=== PATIENT | female | born 1980 | race Caucasian/White ===

== ENCOUNTER 2020-01-06 17:50 | Observation (INO) ==
[2020-01-06] MEDS ORDERED: Naloxone 0.4 MG/ML INJ IVP PRN (19:38)
[2020-01-06] MEDS: Acetaminophen 325 MG TABLET PO PRN (21:14)
[2020-01-06] MEDS ORDERED: 0.9 % Sodium Chloride 1,000 ML IV ONE (22:43)
[2020-01-06] MEDS: Ketorolac 15 MG/ML VIAL IVP PRN (22:59)
[2020-01-07] MEDS: MetroNIDAZOLE 500 MG/100 ML 500 MG/100 ML BAG IVPB SCH ×3 (00:16→15:42)
[2020-01-07] MEDS: Cefepime HCl 2,000 MG in Water for inj. (sterile) 20 ML IVP SCH ×3 (00:16→15:41)
[2020-01-07] MEDS ORDERED: 0.9 % Sodium Chloride 1,000 ML IVC ONE (00:32)
[2020-01-07] MEDS: Ketorolac 15 MG/ML VIAL IVP PRN (06:27)
[2020-01-07] MEDS: *HR* Heparin 5,000 UNIT/ML VIAL SQ SCH ×2 (06:28→17:16)
[2020-01-07] MEDS: Acetaminophen 325 MG TABLET PO PRN ×3 (08:29→21:16)
[2020-01-07 08:44] LABS: Hematocrit 33.1 % (35.3-44.9); Hemoglobin 10.2 g/dL (11.5-15.4); Mean Corpuscular HGB Conc 30.8 g/dL (31.6-35.5); Mean Corpuscular Hemoglobin 27.7 pg (28.0-33.3); Mean Corpuscular Volume 89.9 fL (83.0-100.0); Mean Platelet Volume 9.6 fL (9.4-12.4); Platelet Count 166 K/mcL (140-400); Red Blood Count 3.68 M/mcL (3.82-4.97); Red Cell Distribution Width 15.8 % (11.5-14.5); White Blood Count 16.4 K/mcL (4.3-11.1)
[2020-01-07 09:01] LABS: BUN/Creatinine Ratio 16 (6-26); Blood Urea Nitrogen 15 mg/dL (6-20); Calcium 7.3 mg/dL (8.6-10.3); Carbon Dioxide 22 mEq/L (23-29); Chloride 107 mEq/L (98-107); Glucose 103 mg/dL (70-105); Magnesium 1.5 mg/dL (1.6-2.6); Osmolality,Calculated 285 (280-300); Phosphorous 1.5 mg/dL (2.7-4.5); Potassium 3.2 mEq/L (3.5-5.1); Sodium 137 mEq/L (136-145); eGFR For African Americans > 60 (> 60); eGFR For Non-African Americans > 60 (> 60)
[2020-01-07 09:02] LABS: Troponin I < 0.03 ng/mL (< 0.04)
[2020-01-07 11:42] LABS: C-Reactive Protein 272 mg/L (Less than 10)
[2020-01-07 12:07] LABS: Adenovirus Not Detected (Not Detect); Coronavirus 229E Not Detected (Not Detect); Coronavirus HKU1 Not Detected (Not Detect); Coronavirus NL63 Not Detected (Not Detect); Coronavirus OC43 Not Detected (Not Detect)
[2020-01-07 12:08] LABS: Bordetella Pertussis Not Detected (Not Detect); Chlamydophila pneumoniae Not Detected (Not Detect); Human Metapneumovirus Not Detected (Not Detect); Human Rhinovirus/Enterovirus Not Detected (Not Detect); Influenza A Subtype 2009 H1 Not Detected (Not Detect); Influenza B Not Detected (Not Detect); Mycoplasma pneumoniae Not Detected (Not Detect); Parainfluenza Virus 1 Not Detected (Not Detect); Parainfluenza Virus 2 Not Detected (Not Detect); Parainfluenza Virus 3 Not Detected (Not Detect); Parainfluenza Virus 4 Not Detected (Not Detect); Respiratory Syncytial Virus Not Detected (Not Detect); SARS-CoV-2 DETECTED (Not Detect)
[2020-01-07] MEDS ORDERED: Ipratropium/Albuterol Neb 3 ML IH PRN (14:12)
[2020-01-07 17:24] LABS: Adenovirus F 40/41 PCR Not detected (Not detect); Astrovirus PCR Not detected (Not detect); C.difficile Toxin A/B Gene PCR Not detected (Not detect); Campylobacter by PCR Not detected (Not detect); Cryptosporidium by PCR Not detected (Not detect); Cyclospora cayetanensis PCR Not detected (Not detect); E. coli O157 by PCR Not detected (Not detect); Entamoeba histolytica PCR Not detected (Not detect); Enteroaggregative E.coli(EAEC) Not detected (Not detect); Enteropathogenic E.coli(EPEC) Not detected (Not detect); Enterotoxigenic E.coli (ETEC) Not detected (Not detect); Giardia lamblia PCR Not detected (Not detect); Norovirus GI/GII PCR Not detected (Not detect); Plesiomonas shigelloides PCR Not detected (Not detect); Rotavirus A PCR Not detected (Not detect); Salmonella PCR Not detected (Not detect); Sapovirus PCR Not detected (Not detect); Shig/EnteroinvasiveE coli EIEC Not detected (Not detect); Shigalike tox-prod E coli STEC Not detected (Not detect); Vibrio PCR Not detected (Not detect); Vibrio cholerae PCR Not detected (Not detect); Yersinia enterocolitica PCR Not detected (Not detect)
[2020-01-07] MEDS ORDERED: Morphine Sulfate 2 MG/ML SYRINGE IVP ONE (18:28)
[2020-01-07] MEDS ORDERED: (Etanercept [Enbrel] 50 MG) SQ SCH (18:30)
[2020-01-07] MEDS: Lactobacillus 1 EACH CAP.SPRINK PO SCH (20:27)
[2020-01-07] MEDS: tiZANidine 4 MG TABLET PO SCH (20:28)
[2020-01-07] MEDS: Pregabalin 75 MG CAPSULE PO SCH (20:28)
[2020-01-08] MEDS: Cefepime HCl 2,000 MG in Water for inj. (sterile) 20 ML IVP SCH ×4 (00:35→23:03)
[2020-01-08] MEDS: MetroNIDAZOLE 500 MG/100 ML 500 MG/100 ML BAG IVPB SCH ×2 (00:36→08:08)
[2020-01-08] MEDS: *HR* OxyCODONE Immed Rel 5 MG TABLET PO PRN ×2 (03:39→23:04)
[2020-01-08 04:50] LABS: INR 1.3; Prothrombin Time 14.8 Seconds (9.4-12.1)
[2020-01-08 04:53] LABS: Activated Partial Thrombo Time 33.4 Seconds (26.0-36.0)
[2020-01-08 04:54] LABS: Hematocrit 38.3 % (35.3-44.9); Hemoglobin 11.7 g/dL (11.5-15.4); Mean Corpuscular HGB Conc 30.5 g/dL (31.6-35.5); Mean Corpuscular Hemoglobin 27.7 pg (28.0-33.3); Mean Corpuscular Volume 90.8 fL (83.0-100.0); Mean Platelet Volume 9.9 fL (9.4-12.4); Platelet Count 218 K/mcL (140-400); Red Blood Count 4.22 M/mcL (3.82-4.97); White Blood Count 15.6 K/mcL (4.3-11.1)
[2020-01-08 05:10] LABS: BUN/Creatinine Ratio 14 (6-26); Blood Urea Nitrogen 14 mg/dL (6-20); Calcium 8.7 mg/dL (8.6-10.3); Carbon Dioxide 21 mEq/L (23-29); Chloride 105 mEq/L (98-107); Glucose 85 mg/dL (70-105); Magnesium 2.2 mg/dL (1.6-2.6); Osmolality,Calculated 278 (280-300); Phosphorous 2.4 mg/dL (2.7-4.5); Potassium 3.6 mEq/L (3.5-5.1); Sodium 134 mEq/L (136-145); eGFR For African Americans > 60 (> 60); eGFR For Non-African Americans > 60 (> 60)
[2020-01-08 05:13] LABS: Iron < 10 mcg/dL (50-170); Transferrin 240 mg/dL (203-362)
[2020-01-08 05:17] LABS: Lactate Dehydrogenase 211 Units/L (140-271)
[2020-01-08] MEDS: *HR* Heparin 5,000 UNIT/ML VIAL SQ SCH ×2 (05:24→19:07)
[2020-01-08 05:28] LABS: Ferritin 153 ng/mL (10-120)
[2020-01-08 05:34] LABS: Folate 9.7 ng/mL (3.0-16.0)
[2020-01-08 06:40] LABS: Troponin I < 0.03 ng/mL (< 0.04)
[2020-01-08] MEDS: Aspirin 81 MG TAB.CHEW PO SCH (08:03)
[2020-01-08] MEDS: Venlafaxine XR (24 HR) 150 MG CAP.ER.24H PO SCH (08:04)
[2020-01-08] MEDS: Lactobacillus 1 EACH CAP.SPRINK PO SCH ×2 (08:08→20:07)
[2020-01-08] MEDS: Pregabalin 75 MG CAPSULE PO SCH (08:09)
[2020-01-08] MEDS ORDERED: Torsemide 20 MG TABLET PO SCH (09:00)
[2020-01-08] MEDS ORDERED: Cyanocobalamin (B-12) 1,000 MCG TABLET PO SCH (09:00)
[2020-01-08] MEDS ORDERED: hydroCHLOROthiazide 25 MG TABLET PO SCH (09:00)
[2020-01-08] MEDS: tiZANidine 4 MG TABLET PO SCH ×2 (09:34→20:07)
[2020-01-08] MEDS: Multivit/Ca/Min/Fe/FA 1 TAB TABLET PO SCH (09:34)
[2020-01-08] MEDS ORDERED: Dextrose Gel 15 GM/37.5 ML TUBE PO PRN ×2 (10:49)
[2020-01-08] MEDS ORDERED: *HR* Dextrose 50 % in Water (Vial) 50 ML VIAL IVP PRN (10:49)
[2020-01-08] MEDS ORDERED: D5% in Water 1,000 ML IVC PRN (10:49)
[2020-01-08] MEDS: Insulin LISPRO 300 UNITS/3 ML VIAL SQ SCH ×2 (11:33→16:01)
[2020-01-08] MEDS: Metoprolol XL (24 HR) Succ 25 MG TAB.ER.24H PO SCH (11:53)
[2020-01-08] MEDS: Acetaminophen 325 MG TABLET PO PRN (15:54)
[2020-01-09] MEDS: *HR* Heparin 5,000 UNIT/ML VIAL SQ SCH (06:04)
[2020-01-09 07:41] VITALS: BP 107/62
[2020-01-09] MEDS: Metoprolol XL (24 HR) Succ 25 MG TAB.ER.24H PO SCH (07:58)
[2020-01-09] MEDS: Insulin LISPRO 300 UNITS/3 ML VIAL SQ SCH (07:58)
[2020-01-09] MEDS: Aspirin 81 MG TAB.CHEW PO SCH (08:04)
[2020-01-09] MEDS: Venlafaxine XR (24 HR) 150 MG CAP.ER.24H PO SCH ×2 (08:04→08:36)
[2020-01-09] MEDS: Multivit/Ca/Min/Fe/FA 1 TAB TABLET PO SCH (08:04)
[2020-01-09] MEDS: tiZANidine 4 MG TABLET PO SCH (08:05)
[2020-01-09] MEDS: Lactobacillus 1 EACH CAP.SPRINK PO SCH (08:05)
[2020-01-09] MEDS: Cefepime HCl 2,000 MG in Water for inj. (sterile) 20 ML IVP SCH (08:06)
[2020-01-09 08:38] LABS: Hematocrit 32.3 % (35.3-44.9); Hemoglobin 10.6 g/dL (11.5-15.4); Mean Corpuscular HGB Conc 32.8 g/dL (31.6-35.5); Mean Corpuscular Hemoglobin 29.1 pg (28.0-33.3); Mean Corpuscular Volume 88.7 fL (83.0-100.0); Mean Platelet Volume 9.8 fL (9.4-12.4); Platelet Count 216 K/mcL (140-400); Red Blood Count 3.64 M/mcL (3.82-4.97); Red Cell Distribution Width 15.9 % (11.5-14.5); White Blood Count 9.5 K/mcL (4.3-11.1)
[2020-01-09 08:53] LABS: Estimated Average Glucose 117 mg/dl
[2020-01-09 08:58] LABS: BUN/Creatinine Ratio 13 (6-26); Blood Urea Nitrogen 11 mg/dL (6-20); Calcium 8.2 mg/dL (8.6-10.3); Carbon Dioxide 26 mEq/L (23-29); Chloride 107 mEq/L (98-107); Glucose 107 mg/dL (70-105); Magnesium 1.8 mg/dL (1.6-2.6); Osmolality,Calculated 286 (280-300); Phosphorous 2.2 mg/dL (2.7-4.5); Potassium 3.3 mEq/L (3.5-5.1); Sodium 138 mEq/L (136-145); eGFR For African Americans > 60 (> 60); eGFR For Non-African Americans > 60 (> 60)
[2020-01-09] MEDS ORDERED: Cyanocobalamin (B-12) 1,000 MCG/ML VIAL SQ SCH (09:00)
== END 2020-01-09 11:50 | disposition home or self-care (01) ==
LOC: 3ANU → SUATTDRO 19:09 → 2NENU 01-07 14:42
PROVIDERS: ADMIT Internal Medicine; ATTEND Internal Medicine